=== PATIENT | male | born 1960 | race Caucasian/White ===

== ENCOUNTER → 2022-06-04 11:09 | Outpatient (CLI) | payer OTHER, SELFPAY ==
[2022-06-04 12:15] LABS: COVID19 -Nasal RAPID Negative (Negative)
== END ==
PROVIDERS: Referring Provider Internal Medicine; Visit Provider Internal Medicine
DX: Z20.822 Contact with and (suspected) exposure to COVID-19 (principal)
CPT/HCPCS: 87635; C9803

== ENCOUNTER → 2022-06-04 11:12 | Outpatient (CLI) | payer OTHER, SELFPAY ==
--- NOTE | 2022-06-07 07:48 | PM.PFT.1 ---
Pulmonary Function Test Referral & Results Date Patient Seen: 06/04/22 Requesting provider: Mahendra Cedillo Indication: Shortness of breath Results: The spirometry demonstrates an FVC of 5.03 L which is 95% of predicted. The FEV1 was measured at 3.82 L which is 95% of predicted. The FEV1/FVC ratio was 76 which is 100% of predicted. The diffusing capacity is measured at 28.97 which is 79% of predicted. No hemoglobin value was provided, so no correction for potential anemia could be made, if appropriate. Interpretation: This study demonstrates normal forced spirometry There is a minimal reduction in diffusing capacity unless patient is anemic as above. This suggest the possibility of some disease at the capillary alveolar level Clinical correlation suggested
== END ==
PROVIDERS: Referring Provider Chiropractor; Visit Provider Chiropractor
DX: R06.02 Shortness of breath (principal); J98.8 Other specified respiratory disorders; Z20.822 Contact with and (suspected) exposure to COVID-19
CPT/HCPCS: 87635; 94010; 94729; C9803